=== PATIENT | male | born 1945 | race Caucasian/White ===

== ENCOUNTER 2023-04-25 11:46 | Emergency (ER) | payer MEDICARE ==
--- NOTE | 2023-04-25 11:53 | ERPHSYRPT ---
- History of Present Illness Time Seen by Provider: 04/25/23 11:53 Source: patient Exam Limitations: no limitations Physician History: This is a 77-year-old overweight white male who was sent to the emergency department by Dr. Juares, his primary care physician, today secondary to shortness of breath symptoms. Patient arrives to the emergency department with room air oxygenation saturation level at 91 to 93%. Patient denies any kind of chest pain. In the last couple days he has had some coughing episodes and shortness of breath. He is on medications for diabetes but no other medications. Timing/Duration: day(s) (2) Severity of Dyspnea-Max: mild Severity of Dyspnea-Current: mild (To moderate to moderate) Possible Cause: no prior episodes Modifying Factors: Improves With: activity, coughing (Worsens) Associated Symptoms: cough, No chest pain/discomfort Allergies/Adverse Reactions: No Known Drug Allergies Allergy (Verified 04/25/23 11:47) Home Medications: Empagliflozin/Metformin HCl [Synjardy Xr 10-1,000 mg Tablet] 1 tab PO DAILY 04/25/23 [History] Semaglutide [Ozempic] 0.5 mg SQ WEEKLY 04/25/23 [History] Travel Risk - International Travel Have you traveled outside of the country in past 3 weeks: No - Coronavirus Screening Are you exhibiting any of the following symptoms?: Yes Symptoms: Cough: New Onset, Shortness of Breath Close contact with a COVID-19 positive Pt in past 14-21 Days: No - Review of Systems Constitutional: No Symptoms Eyes: No Symptoms Ears, Nose, & Throat: No Symptoms Respiratory: Cough, Dyspnea Cardiac: No Symptoms Abdominal/Gastrointestinal: No Symptoms Genitourinary Symptoms: No Symptoms Musculoskeletal: No Symptoms Skin: No Symptoms Neurological: No Symptoms Psychological: No Symptoms Endocrine: No Symptoms Hematologic/Lymphatic: No Symptoms Immunological/Allergic: No Symptoms All Other Systems: Reviewed and Negative - Past Medical History Pertinent Past Medical History: No - Past Surgical History Past Surgical History: No - Nursing Vital Signs Nursing Vital Signs: Initial Vital Signs Temperature 98.3 F 04/25/23 11:46 Pulse Rate 114 H 04/25/23 11:46 Respiratory Rate 25 H 04/25/23 11:46 Blood Pressure 155/99 04/25/23 11:46 O2 Sat by Pulse Oximetry 92 L 04/25/23 11:46 Pain Scale Pain Intensity 0 - Physical Exam General Appearance: no apparent distress, alert, anxiety Eye Exam: PERRL/EOMI, eyes nml inspection Ears, Nose, Throat Exam: hearing grossly normal, normal ENT inspection, normal pharynx Neck Exam: normal inspection, non-tender, supple, full range of motion Respiratory Exam: airway intact, rhonchi (Bilateral), No chest tenderness, No respiratory distress Cardiovascular/Chest Exam: normal heart sounds, regular rate/rhythm, normal peripheral pulses Abdominal/Gastrointestinal Exam: soft, normal bowel sounds, No tenderness Rectal Exam: not done Extremity Exam: non-tender, normal range of motion, normal inspection, normal capillary refill, no calf tenderness, no pedal edema, pelvis stable Neurologic Exam: alert, oriented x 3, cooperative, therapist asst II-XII nml as tested, normal mood/affect, nml cerebellar function, nml station & gait, sensation nml Skin Exam: normal color, warm, dry Lymphatic Exam: No adenopathy SpO2 Interpretation: normal O2 Delivery: Room Air - Course Nursing assessment & vital signs reviewed: Yes EKG Interpreted by Me: RATE (102), Sinus Tach, NORMAL AXIS, NORMAL INTERVALS, R ight Bundle Branch Block, Other (There is no acute ischemic changes on today's twelve-lead EKG.) Ordered Tests: Active Orders 24 hr Category Date Time Status Paedodontist STAT Care 04/25/23 12:11 Active EKG-ER Only STAT Care 04/25/23 12:10 Active IV Insertion STAT Care 04/25/23 12:10 Active Pulse Oximetry (ED) STAT Care 04/25/23 12:10 Active CHEST 1 VIEW (PORTABLE) Stat Exams 04/25/23 12:10 Completed CHEST WITH CONTRAST [CT] Routine Exams 04/25/23 14:34 Completed BLOOD CULTURE Stat Lab 04/25/23 12:34 Received CBC W DIFF Stat Lab 04/25/23 11:58 Completed CMP Stat Lab 04/25/23 11:58 Completed D-DIMER QUANTITATIVE Stat Lab 04/25/23 13:49 Completed NT PRO BNPII Stat Lab 04/25/23 11:58 Completed TROPONIN Q4H Lab 04/25/23 04:14 Received TROPONIN Q4H Lab 04/25/23 11:58 Completed TROPONIN Q4H Lab 04/25/23 20:15 Ordered Qualify for Home Oxygen TODAY RT 04/25/23 14:34 Completed Respiratory Therapy Assessment DAILY RT 04/25/23 12:45 Completed Medication Summary Discontinued Medications Generic Name Dose Route Start Last Admin Trade Name Anthony PRN Reason Stop Dose Admin Albuterol/Ipratropium 3 ml 04/25/23 12:45 04/25/23 12:46 Ipratropium/Albuterol Sulfate 3 Ml Ampul.Neb IH 04/25/23 12:46 3 ml STAT ONE Administration Albuterol/Ipratropium Confirm 04/25/23 12:48 Ipratropium/Albuterol Sulfate 3 Ml Ampul.Neb Administered 04/25/23 12:49 Dose 3 ml IH .STK-MED ONE Methylprednisolone Sodium 0 mg 04/25/23 12:10 04/25/23 12:16 Succinate 125 mg/ Sterile IV 04/25/23 12:11 125 mg Water 2 ml STAT ONE Administration Sodium Chloride 500 mls @ 500 mls/hr 04/25/23 14:15 04/25/23 14:41 Sodium Chloride 0.9% 500 Ml IV 04/25/23 15:14 500 mls/hr .Q1H ONE Administration Sodium Chloride Confirm 04/25/23 14:39 Sodium Chloride 0.9% 500 Ml Administered 04/25/23 14:40 Dose 500 mls @ ud IV .STK-MED ONE Methylprednisolone Sodium Succinate Confirm 04/25/23 12:15 Methylprednis Sod Succ 125 Mg/2 Ml Vial Administered 04/25/23 12:16 Dose 125 mg .ROUTE .STK-MED ONE Sterile Water Confirm 04/25/23 12:15 Water For Injection,Sterile 10 Ml Vial Administered 04/25/23 12:16 Dose 10 ml IJ .STK-MED ONE Lab/Rad Data: Laboratory Result Diagrams 04/25/23 11:58 04/25/23 11:58 Laboratory Results 04/25/23 04/25/23 04/25/23 Range/Units 13:49 12:30 11:58 WBC (4.0-10.5) x10^3/uL RBC (4.1-5.6) x10^6/uL Hgb (12.5-18.0) g/dL Hct (42-50) % MCV (78-100) fL MCH (26-32) pg MCHC (32-36) g/dL RDW (11.5-14.0) % Plt Count (150-450) x10^3/uL MPV (7.5-11.0) fL Gran % (36.0-66.0) % Immature Gran % (Auto) (0.00-0.4) % Nucleat RBC Rel Count (0.00-0.1) % Eos # (Auto) (0-0.5) x10^3/uL Immature Gran # (Auto) (0.00-0.03) x10^3u/L Absolute Lymphs (auto) (1.0-4.6) x10^3/uL Absolute Monos (auto) (0.0-1.3) x10^3/uL Absolute Nucleated RBC (0.00-0.01) x10^3u/L Lymphocytes % (24.0-44.0) % Monocytes % (0.0-12.0) % Eosinophils % (0.00-5.0) % Basophils % (0.0-0.4) % Absolute Granulocytes (1.4-6.9) x10^3/uL Basophils # (0-0.4) x10^3/uL D-Dimer 0.65 H* (0.0-0.50) mg/L Sodium (137-145) mmol/L Potassium (3.5-5.1) mmol/L Chloride (98-107) mmol/L Carbon Dioxide (22-30) mmol/L Anion Gap (5-15) MEQ/L BUN (9-20) mg/dL Creatinine (0.66-1.25) mg/dL Estimated GFR ML/MIN Glucose (74-106) mg/dL Calcium (8.4-10.2) mg/dL Total Bilirubin (0.2-1.3) mg/dL AST (17-59) U/L ALT (0-50) U/L Alkaline Phosphatase (38-126) U/L Troponin I < 0.012 (0.000-0.034) ng/mL NT-Pro-B Natriuret Pep (<300) pg/mL Serum Total Protein (6.3-8.2) g/dL Albumin (3.5-5.0) g/dL Influenza Type A Ag NEGATIVE (NEGATIVE) Influenza Type B Ag NEGATIVE (NEGATIVE) RSV (PCR) NEGATIVE (NEGATIVE) SARS-CoV-2 (PCR) NEGATIVE (NEGATIVE) 04/25/23 04/25/23 Range/Units 11:58 11:58 WBC 9.9 (4.0-10.5) x10^3/uL RBC 5.34 (4.1-5.6) x10^6/uL Hgb 15.5 (12.5-18.0) g/dL Hct 48.2 (42-50) % MCV 90.3 (78-100) fL MCH 29.0 (26-32) pg MCHC 32.2 (32-36) g/dL RDW 13.4 (11.5-14.0) % Plt Count 260 (150-450) x10^3/uL MPV 9.4 (7.5-11.0) fL Gran % 75.7 H (36.0-66.0) % Immature Gran % (Auto) 0.4 (0.00-0.4) % Nucleat RBC Rel Count 0.0 (0.00-0.1) % Eos # (Auto) 0.10 (0-0.5) x10^3/uL Immature Gran # (Auto) 0.04 H (0.00-0.03) x10^3u/L Absolute Lymphs (auto) 1.49 (1.0-4.6) x10^3/uL Absolute Monos (auto) 0.68 (0.0-1.3) x10^3/uL Absolute Nucleated RBC 0.00 (0.00-0.01) x10^3u/L Lymphocytes % 15.1 L (24.0-44.0) % Monocytes % 6.9 (0.0-12.0) % Eosinophils % 1.0 (0.00-5.0) % Basophils % 0.9 (0.0-0.4) % Absolute Granulocytes 7.49 H (1.4-6.9) x10^3/uL Basophils # 0.09 (0-0.4) x10^3/uL D-Dimer (0.0-0.50) mg/L Sodium 137 (137-145) mmol/L Potassium 3.7 (3.5-5.1) mmol/L Chloride 99 (98-107) mmol/L Carbon Dioxide 28 (22-30) mmol/L Anion Gap 13.4 (5-15) MEQ/L BUN 14 (9-20) mg/dL Creatinine 1.28 H (0.66-1.25) mg/dL Estimated GFR 57.6 ML/MIN Glucose 189 H (74-106) mg/dL Calcium 8.9 (8.4-10.2) mg/dL Total Bilirubin 0.50 (0.2-1.3) mg/dL AST 24 (17-59) U/L ALT 24 (0-50) U/L Alkaline Phosphatase 122 (38-126) U/L Troponin I (0.000-0.034) ng/mL NT-Pro-B Natriuret Pep 135 (<300) pg/mL Serum Total Protein 7.8 (6.3-8.2) g/dL Albumin 4.3 (3.5-5.0) g/dL Influenza Type A Ag (NEGATIVE) Influenza Type B Ag (NEGATIVE) RSV (PCR) (NEGATIVE) SARS-CoV-2 (PCR) (NEGATIVE) - Progress Progress: improved, re-examined Air Movement: fair Progress Note: 04/25/23 13:26 This patient's medical issue is 1 of moderate complexity. Level complexity in the work-up performed is based on review of the patient's past medical history, review of the patient's medication list, review the patient's drug allergy list, history present illness and physical findings on examination. The work-up in this patient includes a chest x-ray, twelve-lead EKG, BNP, CBC and CMP. We are awaiting the results of the work-up. Chest x-ray was interpreted by the radiologist. I reviewed the impression. There is no evidence of any acute cardiopulmonary process. 04/25/23 13:47 I reviewed the results of the patient's work-up and interpreted them. Patient has no evidence of any acute, emergent process. Patient likely has COPD exacerb ation. Patient has a normal troponin level normal CHF level and no evidence of any acute cardiopulmonary process on chest x-ray. 04/25/23 13:48 I will order a D-dimer. If this D-dimer is normal then we will discharge him to home with COPD exacerbation as my clinical impression. If the D-dimer is elevated I will perform a CT scan of the chest with contrast. 04/25/23 16:54 I had respiratory therapy evaluate this patient. He does qualify for home oxygen therapy. CT scan of the abdomen with contrast was interpreted by the radiologist and I reviewed the impression. The study is negative for pulmonary embolus. However, the study does show endobronchial soft tissue mass in the distal right main bronchus extending into right upper and right middle lobe bronchi. The differential includes a malignant carcinoma, a benign hematoma, a benign leiomyoma, a benign papilloma, benign fibroma. Direct bronchoscopy is recommended. Blood Culture(s) Obtained: Yes Antibiotics given: No Counseled pt/family regarding: lab results, diagnosis, rad results Medical Desision Making - Independent Historian Additional History obtained from: Family - Diagnostic Testing Diagnostic test were ordered, analyzed, and reviewed by me: Yes Radiological Interpretation: Reviewed by me, Teleradiologist Report - Risk of complications The pt has a mod risk of morbidity or mortality based on: Need for prescription drug management - Departure Departure Disposition: Home Clinical Impression: COPD exacerbation, Mass of right lung Condition: Stable Critical Care Time: No Referrals: DOMINGO JUARES MD [Primary Care Provider] - Follow up/PCP as directed Instructions: Chronic Obstructive Pulmonary Disease Additional Instructions: CALL [facility] AT: [phone] WHEN YOU GET HOME. THEY WILL BRING THE REST OF YOUR OXYGEN EQUIPMENT. THE PORTABLE UNIT WILL ONLY LAST A FEW HOURS, SO DON'T FORGET TO CALL THEM SOON YOU GET HOME. Take your medication as prescribed. Call your primary care doctor tomorrow, 04/26/2023 to obtain a referral to a head men's tennis coach (lung doctor) so they can perform a bronchoscopy to evaluate the lung mass that is present. Use your nebulizer treatments every 4 hours while awake. Monitor your blood sugar while taking the steroid medication. Prescriptions: Prednisone 10 mg [Deltasone 10 mg] 10 mg PO TID #12 tablet Albuterol 2.5 mg/3 ml Neb [Proventil 2.5 mg/3 ml Neb] 2.5 mg IH Q6H #25 unit
[2023-04-25] MEDS ORDERED: solu-MEDROL 125 MG, Sterile H2O 10 ml 2 ML IV ONE ×2 (12:10)
[2023-04-25 12:14] VITALS: TEMP 98.3
[2023-04-25] MEDS ORDERED: solu-MEDROL ONE (12:15)
[2023-04-25] MEDS ORDERED: Sterile H2O 10 ml IJ ONE (12:15)
[2023-04-25] MEDS ORDERED: DUONEB 0.5-3 MG/3 ml Neb IH ONE ×2 (12:45→12:48)
[2023-04-25 12:53] LABS: Absolute Neutrophil Ct (ANC) 7.49 x10^3/uL (1.4-6.9); BASOPHIL % 0.9 % (0.0-0.4); Basophil (Absolute #) 0.09 x10^3/uL (0-0.4); Hematocrit 48.2 % (42-50); Hemoglobin 15.5 g/dL (12.5-18.0); IMMATURE GRAN # 0.04 x10^3u/L (0.00-0.03); IMMATURE GRAN % 0.4 % (0.00-0.4); Lymphocyte (Absolute #) 1.49 x10^3/uL (1.0-4.6); Lymphocytes % 15.1 % (24.0-44.0); Mean Cell Volume 90.3 fL (78-100); Mean Corpuscular Hgb Concent. 32.2 g/dL (32-36); Mean Platelet Volume 9.4 fL (7.5-11.0); Monocyte (Absolute #) 0.68 x10^3/uL (0.0-1.3); Monocytes % 6.9 % (0.0-12.0); Neutrophil % 75.7 % (36.0-66.0); Platelet Count 260 x10^3/uL (150-450); Red Blood Count 5.34 x10^6/uL (4.1-5.6); Red Cell Distribution Width 13.4 % (11.5-14.0); White Blood Count 9.9 x10^3/uL (4.0-10.5)
--- NOTE | 2023-04-25 13:05 | XRAY ---
Indication: Cough and short of breath. Imperson: None Portable chest demonstrates 1.2 cm left base nodularity, probable nipple shadow. Remaining heart and lungs unremarkable. Bony thorax intact.
[2023-04-25 13:24] LABS: ALBUMIN 4.3 g/dL (3.5-5.0); ANION GAP 13.4 MEQ/L (5-15); BILIRUBIN,TOTAL 0.5 mg/dL (0.2-1.3); Calcium 8.9 mg/dL (8.4-10.2); Creatinine 1 1.28 mg/dL (0.66-1.25); EST GLOMERULAR FILTRATION RATE 57.6 ML/MIN; Potassium 3.7 mmol/L (3.5-5.1); Total Protein 7.8 g/dL (6.3-8.2)
[2023-04-25 13:29] LABS: INFLUENZA A NEGATIVE (NEGATIVE); INFLUENZA B NEGATIVE (NEGATIVE); RESPIRATORY SYNCTIAL VIRUS NEGATIVE (NEGATIVE); SARS-CoV-2 Xpert Express NEGATIVE (NEGATIVE)
[2023-04-25] MEDS ORDERED: Sodium Chloride 0.9% 500 ML 500 ML IV ONE ×2 (14:15→14:39)
[2023-04-25 16:32] VITALS: BP 141/105; PULSE 111; RESP 19; O2SAT 95
--- NOTE | 2023-04-25 16:47 | XRAY ---
Indication: Short of breath. Elevated d-dimer. Multiple contiguous axial images obtained through the chest using 80 cc Isovue 370 contrast and PE protocol. Comparison: None Adequate opacification of the pulmonary arteries to include the lobar and segmental branches. No pulmonary embolus. Heart not enlarged. Aorta is normal in course and caliber. No pathologic mediastinal/hilar lymphadenopathy. Distal right mainstem bronchus demonstrates intraluminal soft tissue mass further extending into the proximal right upper and right middle lobe bronchi with total occlusion. Lesser degree seen in the posterior right lower lobe branch. No postobstructive atelectasis. Remaining lungs demonstrates small posterior right lower lobe calcified granuloma and minimal right base subsegmental atelectasis/scarring. Bony thorax intact with mild degenerative changes throughout the spine. Limited upper abdomen demonstrates diffuse fatty liver and cholecystectomy clips. Impression: 1. Negative pulmonary embolus. 2. Endobronchial soft tissue mass distal right main bronchus extending mainly into right upper and right middle lobe bronchi. Differential would include malignant carcinoma. Benign differentials would include hematoma, leiomyoma, papilloma, and fibroma. Direct bronchoscopy recommended. 3. Incidental fatty liver and old granulomatous disease.
== END 2023-04-25 17:25 | disposition home or self-care (01) ==
LOC: ED 11:46
DX: J44.1 Chronic obstructive pulmonary disease with (acute) exacerbation (principal); R91.8 Other nonspecific abnormal finding of lung field; R06.02 Shortness of breath; R05.9 Cough, unspecified; E11.9 Type 2 diabetes mellitus without complications; Z79.52 Long term (current) use of systemic steroids; Z79.84 Long term (current) use of oral hypoglycemic drugs; Z79.85 Long-term (current) use of injectable non-insulin antidiabetic drugs
CPT/HCPCS: 0241U; 36000; 36415; 71045; 71260; 80053; 83880; 84484; 85025; 85379; 87040; 93005; 93041; 94640; 94760; 96374; 99284; J2930; A9270-GY

== ENCOUNTER 2024-06-06 19:46 | Emergency (ER) | payer MEDICARE ==
--- NOTE | 2024-06-06 21:03 | ERPHSYRPT ---
- History of Present Illness Time Seen by Provider: 06/06/24 21:02 Historian: patient, family Exam Limitations: no limitations Physician History: This is an obese 79-year-old white male patient of Dr. Garcia and oncologist Dr. Castle, who has metastatic lung cancer and recently started second round of chemotherapy which had to stop because of the patient's complaint of weakness and presents to the emergency department with abdominal pain in the epigastric and bilateral upper quadrant areas and associated weakness. Less than year ago patient received the first round of chemotherapy followed by radiation therapy and then in the last few weeks has had 3 rounds of second round of chemotherapy. Patient is diabetic. Timing/Duration: week(s) (1), intermittent, worse Quality: sharpness, stabbing Abdominal Pain Onset Location: RUQ, LUQ, epigastric Pain Radiation: no radiation Severity of Pain-Max: mild (To moderate) Modifying Factors: Improves With: movement Associated Symptoms: loss of appetite, weakness, No chest pain, No diarrhea, No nausea Previous symptoms: same symptoms as today, no recent treatment Allergies/Adverse Reactions: No Known Drug Allergies Allergy (Verified 06/06/24 21:18) Home Medications: Empagliflozin/Metformin HCl [Synjardy Xr 10-1,000 mg Tablet] 1 tab PO DAILY 04/25/23 [History] Albuterol 2.5 mg/3 ml Neb [Proventil 2.5 mg/3 ml Neb] 2.5 mg IH Q6H PRN PRN 06/06/24 [History] Albuterol Sulfate 2.5 mg IH BID 06/06/24 [History] Ondansetron [Ondansetron Odt] 8 mg PO DAILY PRN PRN 06/06/24 [History] Tramadol HCl 50 mg [Ultram 50 mg] 50 mg PO DAILY PRN PRN 06/06/24 [History] droNABinol [Dronabinol] 2.5 mg PO BID 06/06/24 [History] Hx Tetanus, Diphtheria Vaccination/Date Given: Yes Hx Influenza Vaccination/Date Given: Yes Hx Pneumococcal Vaccination/Date Given: Yes Travel Risk - International Travel Have you traveled outside of the country in past 3 weeks: No - Emerging Infectious Disease Are you exhibiting symptoms associated with any current EIDs: No - Review of Systems Constitutional: Weakness Eyes: No Symptoms Ears, Nose, & Throat: No Symptoms Respiratory: No Symptoms Cardiac: No Symptoms, No Chest Pain Abdominal/Gastrointestinal: Abdominal Pain, Nausea, Appetite Changes Genitourinary Symptoms: No Symptoms Musculoskeletal: No Symptoms Skin: No Symptoms Neurological: No Symptoms Psychological: No Symptoms Endocrine: No Symptoms Hematologic/Lymphatic: No Symptoms Immunological/Allergic: No Symptoms All Other Systems: Reviewed and Negative - Past Medical History Pertinent Past Medical History: Yes Endocrine Medical History: Diabetes Type II GI Medical History: Gallbladder Disease, Hernia - Past Surgical History Past Surgical History: No Gastrointestinal: Cholecystectomy, Hernia Repair Genitourinary: No Pertinent History Musculoskeletal: No Pertinent History Male Surgical History: No Pertinent History - Social History Smoking Status: Former smoker Exposure to second hand smoke: No Drug Use: none - Nursing Vital Signs Nursing Vital Signs: Initial Vital Signs Temperature 98.5 F 06/06/24 21:02 Blood Pressure 141/88 06/06/24 21:02 Pain Scale Pain Intensity 2 - Physical Exam General Appearance: no apparent distress, alert, anxiety, obese Eye Exam: PERRL/EOMI, eyes nml inspection Ears, Nose, Throat Exam: normal ENT inspection, moist mucous membranes Neck Exam: normal inspection, non-tender, supple, full range of motion Respiratory Exam: normal breath sounds, lungs clear, airway intact, No chest tenderness, No respiratory distress Cardiovascular Exam: regular rate/rhythm, normal heart sounds, normal peripheral pulses Gastrointestinal/Abdomen Exam: soft, normal bowel sounds, tenderness (Mild to palpation epigastrium), guarding (Mild to palpation in the epigastrium), No rebound Rectal Exam: not done Back Exam: normal inspection, normal range of motion, No CVA tenderness, No radha tebral tenderness Extremity Exam: normal inspection, normal range of motion, pelvis stable Neurologic Exam: alert, oriented x 3, cooperative, sales operations analyst II-XII nml as tested, nml cerebellar function, nml station & gait, sensation nml Skin Exam: normal color, warm, dry Lymphatic Exam: No adenopathy SpO2 Interpretation: normal O2 Delivery: Room Air - Course Nursing assessment & vital signs reviewed: Yes EKG Interpreted by Me: RATE, Sinus Tach, LAFB, NORMAL INTERVALS, Right Bundle Branch Block, Other (No acute ischemia present. QTc 484.) Ordered Tests: Active Orders 24 hr Category Date Time Status EKG-ER Only STAT Care 06/06/24 21:54 Active IV Insertion STAT Care 06/06/24 21:54 Active ABDOMEN AND PELVIS W/0 CONTRAS [CT] Stat Exams 06/06/24 21:55 Completed AMYLASE Stat Lab 06/06/24 22:10 Completed CBC W DIFF Stat Lab 06/06/24 22:10 Completed CMP Stat Lab 06/06/24 22:10 Completed LIPASE Stat Lab 06/06/24 22:10 Completed Lactic Acid Stat Lab 06/06/24 21:54 Completed TROPONIN Q4H Lab 06/06/24 22:10 Completed TROPONIN Q4H Lab 06/07/24 02:00 Ordered TROPONIN Q4H Lab 06/07/24 06:00 Ordered UA W/RFX UR CULTURE Stat Lab 06/06/24 22:53 Completed Medication Summary Discontinued Medications Generic Name Dose Route Start Last Admin Trade Name Freq PRN Reason Stop Dose Admin Sodium Chloride 1,000 mls @ 999 mls/hr 06/06/24 21:54 06/06/24 23:30 Sodium Chloride 0.9% 1000 Ml IV 06/06/24 22:54 Infused .Q1H1M STA Infusion Sodium Chloride Confirm 06/06/24 22:10 Sodium Chloride 0.9% 1000 Ml Administered 06/06/24 22:11 Dose 1,000 mls @ ud .ROUTE .STK-MED ONE Ondansetron HCl 4 mg 06/06/24 21:54 06/06/24 22:14 Ondansetron Hcl 4 Mg/2 Ml Vial IV 06/06/24 21:55 4 mg STAT ONE Administration Ondansetron HCl Confirm 06/06/24 22:10 Ondansetron Hcl 4 Mg/2 Ml Vial Administered 06/06/24 22:11 Dose 4 mg .ROUTE .STK-MED ONE Pantoprazole Sodium 40 mg 06/06/24 21:54 06/06/24 22:14 Pantoprazole 40 Mg Vial IV 06/06/24 21:55 40 mg STAT ONE Administration Pantoprazole Sodium Confirm 06/06/24 22:10 Pantoprazole 40 Mg Vial Administered 06/06/24 22:11 Dose 40 mg IV .STK-MED ONE Lab/Rad Data: Laboratory Result Diagrams 06/06/24 22:10 06/06/24 22:10 Laboratory Results 06/06/24 06/06/24 06/06/24 Range/Units 22:53 22:10 22:10 WBC (4.23-9.07) x10^3/uL RBC (4.63-6.08) x10^6/uL Hgb (13.7-17.5) g/dL Hct (40.1-51.0) % MCV (79.0-92.2) fL MCH (25.7-32.2) pg MCHC (32.3-36.5) g/dL RDW (11.6-14.4) % Plt Count (163-337) x10^3/uL MPV (9.4-12.4) fL Gran % (34.0-67.9) % Immature Gran % (Auto) (0.001-0.429) % Nucleat RBC Rel Count (0.00-0.2) % Eos # (Auto) (0.04-0.54) x10^3/uL Immature Gran # (Auto) (0.001-0.031) x10^3u/L Absolute Lymphs (auto) (1.32-3.57) x10^3/uL Absolute Monos (auto) (0.30-0.82) x10^3/uL Absolute Nucleated RBC (0.00-0.012) x10^3u/L Lymphocytes % (21.8-53.1) % Monocytes % (5.3-12.2) % Eosinophils % (0.8-7.0) % Basophils % (0.2-1.2) % Absolute Granulocytes (1.78-5.38) x10^3/uL Basophils # (0.01-0.08) x10^3/uL Sodium 136 (135-145) mmol/L Potassium 4.5 (3.5-5.1) mmol/L Chloride 100 (98-107) mmol/L Carbon Dioxide 26 (22-30) mmol/L Anion Gap 15.1 H (5-15) MEQ/L BUN 23 H (9-20) mg/dL Creatinine 0.96 (0.66-1.25) mg/dL Estimated GFR 79.4 ML/MIN Glucose 131 H (74-106) mg/dL Lactic Acid (0.4-2.0) Calcium 9.5 (8.4-10.2) mg/dL Total Bilirubin 0.50 (0.2-1.3) mg/dL AST 69 H (17-59) U/L ALT 55 H (0-50) U/L Alkaline Phosphatase 322 H (38-126) U/L Troponin I < 0.012 (0.000-0.033) ng/mL Serum Total Protein 7.9 (6.3-8.2) g/dL Albumin 3.8 (3.5-5.0) g/dL Amylase 103 (30-110) U/L Lipase 227 (23-300) U/L Urine Color Yellow (Yellow) Urine Appearance Clear (Clear) Urine pH 5.5 (4.6-8.0) Ur Specific [place] >=1.030 A (1.005-1.030) Urine Protein Trace A (Negative) Urine Glucose (UA) >=1000 A (Negative) mg/dL Urine Ketones Trace A (Negative) Urine Blood Negative (Negative) Urine Nitrite Negative (Negative) Urine Bilirubin Negative (Negative) Urine Urobilinogen 1.0 A (0.2) mg/dL Ur Leukocyte Esterase Negative (Negative) U Hyaline Cast (Auto) NONE SEEN (0-2) /LPF Urine Microscopic RBC 0-2 (0-5) /HPF Urine Microscopic WBC 0-2 (0-5) /HPF Ur Epithelial Cells None Seen (None Seen) /HPF Urine Bacteria None Seen (None Seen) /HPF Urine Culture Reflexed NO (NO) 06/06/24 06/06/24 Range/Units 22:10 21:54 WBC 13.4 H (4.23-9.07) x10^3/uL RBC 3.98 L (4.63-6.08) x10^6/uL Hgb 11.2 L (13.7-17.5) g/dL Hct 35.8 L (40.1-51.0) % MCV 89.9 (79.0-92.2) fL MCH 28.1 (25.7-32.2) pg MCHC 31.3 L (32.3-36.5) g/dL RDW 17.3 H (11.6-14.4) % Plt Count 332 (163-337) x10^3/uL MPV 8.6 L (9.4-12.4) fL Gran % 83.6 H (34.0-67.9) % Immature Gran % (Auto) 0.7 H (0.001-0.429) % Nucleat RBC Rel Count 0.0 (0.00-0.2) % Eos # (Auto) 0.03 L (0.04-0.54) x10^3/uL Immature Gran # (Auto) 0.09 H (0.001-0.031) x10^3u/L Absolute Lymphs (auto) 0.91 L (1.32-3.57) x10^3/uL Absolute Monos (auto) 1.10 H (0.30-0.82) x10^3/uL Absolute Nucleated RBC 0.00 (0.00-0.012) x10^3u/L Lymphocytes % 6.8 L (21.8-53.1) % Monocytes % 8.2 (5.3-12.2) % Eosinophils % 0.2 L (0.8-7.0) % Basophils % 0.5 (0.2-1.2) % Absolute Granulocytes 11.21 H (1.78-5.38) x10^3/uL Basophils # 0.07 (0.01-0.08) x10^3/uL Sodium (135-145) mmol/L Potassium (3.5-5.1) mmol/L Chloride (98-107) mmol/L Carbon Dioxide (22-30) mmol/L Anion Gap (5-15) MEQ/L BUN (9-20) mg/dL Creatinine (0.66-1.25) mg/dL Estimated GFR ML/MIN Glucose (74-106) mg/dL Lactic Acid 2.0 (0.4-2.0) Calcium (8.4-10.2) mg/dL Total Bilirubin (0.2-1.3) mg/dL AST (17-59) U/L ALT (0-50) U/L Alkaline Phosphatase (38-126) U/L Troponin I (0.000-0.033) ng/mL Serum Total Protein (6.3-8.2) g/dL Albumin (3.5-5.0) g/dL Amylase (30-110) U/L Lipase (23-300) U/L Urine Color (Yellow) Urine Appearance (Clear) Urine pH (4.6-8.0) Ur Specific [place] (1.005-1.030) Urine Protein (Negative) Urine Glucose (UA) (Negative) mg/dL Urine Ketones (Negative) Urine Blood (Negative) Urine Nitrite (Negative) Urine Bilirubin (Negative) Urine Urobilinogen (0.2) mg/dL Ur Leukocyte Esterase (Negative) U Hyaline Cast (Auto) (0-2) /LPF Urine Microscopic RBC (0-5) /HPF Urine Microscopic WBC (0-5) /HPF Ur Epithelial Cells (None Seen) /HPF Urine Bacteria (None Seen) /HPF Urine Culture Reflexed (NO) - Progress Progress: improved, pain not gone completely Progress Note: 06/06/24 23:27 My medical decision making and the assignment of moderate complexity to this patient's medical issue today is based on review of the patient's past medical history, review the patient's medication list, review the patient drug allergy list, history present illness and physical findings on examination. The workup in this patient includes placement of intravenous line, infusion of normal saline solution, CBC, CMP, twelve-lead EKG, troponin level, urinalysis, CT scan of the abdomen pelvis without contrast. The differential diagnosis includes but is not limited to worsening lung cancer and worsening metastatic disease, urinary tract infection, anemia, electrolyte abnormalities, acute myocardial infarction 06/07/24 00:15 I interpreted the patient's laboratory data results. Based on the laboratory data results. There are no acute, emergent medical issues. CT scan of the abdomen pelvis without contrast was interpreted by the radiologist and I reviewed the impression. The impression states multiple lung nodules and visualized portion of the right lung parenchyma. Hepatomegaly with likely liver mets. Left inguinal hernia with a portion of the sigmoid colon and its content. Sigmoid diverticulosis. Duodenal diverticulum. Counseled pt/family regarding: lab results, diagnosis, need for follow-up, rad results Medical Desision Making - Independent Historian Additional History obtained from: Spouse - Diagnostic Testing Diagnostic test were ordered, analyzed, and reviewed by me: Yes Radiological Interpretation: Reviewed by me, Teleradiologist Report - Risk of complications Low Risk: Low risk of morbidity from additional dx testing or treatment - Departure Departure Disposition: Home Clinical Impression: Abdominal pain, Weakness, Lung nodule, multiple, Liver nodule, Left inguinal hernia Condition: Stable Critical Care Time: No Referrals: MOR,DOMINGO, MD [Primary Care Provider] - Follow up/PCP as directed Additional Instructions: Diet as tolerated. Take all your medications as prescribed. Call your primary care provider and oncologist later today to make arrangements for follow-up appointment for further evaluation management.
[2024-06-06 21:18] VITALS: TEMP 98.5
[2024-06-06] MEDS ORDERED: Zofran 4 MG/2 ML VIAL ONE (22:10)
[2024-06-06] MEDS ORDERED: PROTONIX 40 MG IV IV ONE (22:10)
[2024-06-06] MEDS ORDERED: Sodium Chloride 0.9% 1000 ML 1,000 ML ONE (22:10)
[2024-06-06 22:12] LABS: Absolute Neutrophil Ct (ANC) 11.21 x10^3/uL (1.78-5.38); BASOPHIL % 0.5 % (0.2-1.2); Basophil (Absolute #) 0.07 x10^3/uL (0.01-0.08); Eosinophil % 0.2 % (0.8-7.0); Eosinophil (Absolute #) 0.03 x10^3/uL (0.04-0.54); Hematocrit 35.8 % (40.1-51.0); Hemoglobin 11.2 g/dL (13.7-17.5); IMMATURE GRAN # 0.09 x10^3u/L (0.001-0.031); IMMATURE GRAN % 0.7 % (0.001-0.429); Lymphocyte (Absolute #) 0.91 x10^3/uL (1.32-3.57); Lymphocytes % 6.8 % (21.8-53.1); Mean Cell Volume 89.9 fL (79.0-92.2); Mean Corpuscular Hemoglobin 28.1 pg (25.7-32.2); Mean Corpuscular Hgb Concent. 31.3 g/dL (32.3-36.5); Mean Platelet Volume 8.6 fL (9.4-12.4); Monocytes % 8.2 % (5.3-12.2); Neutrophil % 83.6 % (34.0-67.9); Platelet Count 332 x10^3/uL (163-337); Red Blood Count 3.98 x10^6/uL (4.63-6.08); Red Cell Distribution Width 17.3 % (11.6-14.4); White Blood Count 13.4 x10^3/uL (4.23-9.07)
[2024-06-06] MEDS: Sodium Chloride 0.9% 1000 ML 1,000 ML IV STA (22:14)
[2024-06-06] MEDS: PROTONIX 40 MG IV IV ONE (22:14)
[2024-06-06] MEDS: Zofran 4 MG/2 ML VIAL IV ONE (22:14)
[2024-06-06 22:48] LABS: ALBUMIN 3.8 g/dL (3.5-5.0); ANION GAP 15.1 MEQ/L (5-15); BILIRUBIN,TOTAL 0.5 mg/dL (0.2-1.3); Calcium 9.5 mg/dL (8.4-10.2); Creatinine 1 0.96 mg/dL (0.66-1.25); EST GLOMERULAR FILTRATION RATE 79.4 ML/MIN; Potassium 4.5 mmol/L (3.5-5.1); Total Protein 7.9 g/dL (6.3-8.2)
[2024-06-06 23:05] LABS: Appearance Clear (Clear); Bacteria None Seen /HPF (None Seen); Bilirubin Negative (Negative); Blood Negative (Negative); Epithelial Cells None Seen /HPF (None Seen); Glucose, Urine >=1000 mg/dL (Negative); Hyaline Casts NONE SEEN /LPF (0-2); Ketones Trace (Negative); Leukocyte Esterase Negative (Negative); Nitrite Negative (Negative); Ph 5.5 (4.6-8.0); Protein,Urine Dip Trace (Negative); RBC 0-2 /HPF (0-5); Specific Gravity >=1.030 (1.005-1.030); WBC 0-2 /HPF (0-5)
[2024-06-07 00:01] VITALS: BP 128/76; PULSE 115; RESP 18; O2SAT 93
--- NOTE | 2024-06-07 00:09 | XRAY ---
CLINICAL HISTORY: Epigastric pain COMPARISON: None. TECHNIQUE: Contiguous axial images were obtained from the level of the diaphragm to the pubic symphysis without intravenous or oral contrast. Coronal and sagittal reconstructions were likewise performed and indicated to increase the sensitivity for detecting clinically relevant pathology. CT scan was performed according to ALARA (as low as reasonably achievable). FINDINGS: Multiple, variable sized discrete as well as confluent nodules are noted in the visualized portion of the right lung parenchyma. Evaluation of the abdominal and pelvic visceral organs is limited without intravenous contrast. Liver is enlarged measuring 17.7 cm. Suspicious multiple hypodense lesions are noted involving both lobes of the liver. The unenhanced spleen, pancreas, and adrenal glands are grossly unremarkable. Gallbladder is not visualized, cholecystectomy status. The kidneys are normal in size and attenuation without obvious calcification. There is no hydronephrosis or perinephric stranding. The ureters are normal in caliber. No adenopathy or fluid collections are seen. No evidence of focal or diffuse bowel wall thickening or evidence of bowel obstruction is seen. Left sided inguinal hernia is noted. Defect measures approximately 4.6 x 4.2 cm. Herniation of the sigmoid colon, its mesentery is noted. No signs of bowel obstruction are noted. Multiple uncomplicated sigmoid diverticuli are noted. The aorta is normal in caliber. The urinary bladder is normal in contour. Few intraprostatic calcifications are seen. No aggressive appearing osseous lesions are identified. IMPRESSION: 1. Multiple, variable sized, discrete as well as confluent nodules in the visualized portion of right lung parenchyma. Possibility of metastasis. 2. Hepatomegaly with multiple hypodense lesions within it. Possibility of metastasis. 3. Left sided inguinal hernia the sigmoid colon as its content. 4. Uncomplicated sigmoid diverticulosis. 5. Small diverticulum from the second part of the duodenum indenting the pancreatic head. Contrast study is advised for better evaluation. Electronically Signed by: Allan Vickers MD. (06/07/2024 00:06:40 EDT)
== END 2024-06-07 00:31 | disposition home or self-care (01) ==
LOC: ED 19:46
DX: R91.8 Other nonspecific abnormal finding of lung field (principal); K76.89 Other specified diseases of liver; K40.90 Unilateral inguinal hernia, without obstruction or gangrene, not specified as recurrent; R10.13 Epigastric pain; R10.11 Right upper quadrant pain; R10.12 Left upper quadrant pain; R53.1 Weakness; E11.9 Type 2 diabetes mellitus without complications; Z79.84 Long term (current) use of oral hypoglycemic drugs; Z79.891 Long term (current) use of opiate analgesic; Z79.899 Other long term (current) drug therapy
CPT/HCPCS: 36000; 36415; 74176; 80053; 81001; 82150; 83605; 83690; 84484; 85025; 93005; 96374; 96375; 99284; J1642; J2405